=== PATIENT | male | born 1940 | race Caucasian/White ===

== ENCOUNTER 2018-07-18 12:03 | Observation (INO) | payer OTHER ==
[2018-07-18] MEDS ORDERED: Sodium Chloride 0.9% 1,000 ML IV ONE (13:11)
--- NOTE | 2018-07-18 14:00 | C.PDOC ---
History Of Present Illness 78-year-old male with a PMHx of prostate problem, presents to the ED for evaluation after noticing blood in his urine since last night. Patient notes the area continues to bleed today, prompting him to come to the ED. He denies any p ain. Patient then called his urologist today, who referred him to the ED. Otherwise he denies any fever, chills, dysuria, or urinary retention. Time Seen by Provider: 07/18/18 13:07 Chief Complaint (Nursing): Male Genitourinary History Per: Patient History/Exam Limitations: no limitations Onset/Duration Of Symptoms: Days Current Symptoms Are (Timing): Still Present Past Medical History Reviewed: Historical Data, Nursing Documentation, Vital Signs Vital Signs: Last Vital Signs Temp 97.7 F 07/18/18 12:07 Pulse 103 H 07/18/18 12:07 Resp 18 07/18/18 12:07 BP 95/64 L 07/18/18 12:07 Pulse Ox 97 07/18/18 12:07 - Medical History PMH: Hypothyroidism Family History: States: No Known Family Hx - Social History Hx Alcohol Use: No Hx Substance Use: No - Immunization History Hx Tetanus Toxoid Vaccination: Yes Hx Influenza Vaccination: Yes Hx Pneumococcal Vaccination: Yes Review Of Systems Constitutional: Negative for: Fever, Chills Cardiovascular: Negative for: Chest Pain Respiratory: Negative for: Shortness of Breath Gastrointestinal: Negative for: Vomiting, Abdominal Pain, Diarrhea Genitourinary: Positive for: Hematuria. Negative for: Dysuria, Scrotal Pain, Penile Pain Neurological: Negative for: Weakness, Dizziness Physical Exam - Physical Exam Appears: Well, Non-toxic, No Acute Distress Skin: Warm, Dry, No Rash Head: Atraumatic, Normacephalic Eye(s): bilateral: Normal Inspection Oral Mucosa: Moist Neck: Normal ROM Chest: Symmetrical Cardiovascular: Rhythm Regular, No Murmur Respiratory: Normal Breath Sounds, No Rales, No Rhonchi, No Wheezing Gastrointestinal/Abdominal: Soft, No Tenderness, No Guarding Male Genital: No Testicular Swelling (or swelling), Circumcised, Other (+ Blood on the tip of penis) Extremity: Bilateral: Atraumatic, Normal Color And Temperature, Normal ROM Neurological/Psych: Oriented x3, Normal Speech ED Course And Treatment - Laboratory Results Result Diagrams: 07/18/18 14:14 07/18/18 14:14 O2 Sat by Pulse Oximetry: 97 (RA) Pulse Ox Interpretation: Normal Medical Decision Making Medical Decision Makin:[address] Reginaldo Diego, requests inserting sotelo and CBI. Will come to evaluate patient in the ED. Plan: * CBC, CMP * UA and culture * Sotelo inserted * Patient kept NPO * 1L IV fluids infusing Progress: Patient continued to have bleeding despite CBI. Contact DR Diego who states he will schedule patient for OR cystoscopy in AM Contact PMD DR Nuñez for admission. Disposition Counseled Patient/Family Regarding: Diagnosis, Need For Followup - Disposition Disposition: HOSPITALIZED Disposition Time: 16:00 Condition: STABLE - POA Present On Arrival: None - Clinical Impression Clinical Impression: Hematuria - PA / [employer] / Resident Statement MD/DO has reviewed & agrees with the documentation as recorded. - Scribe Statement The provider has reviewed the documentation as recorded by the Scribe Kirstie Rock All medical record entries made by the Scribe were at my direction and personally dictated by me. I have reviewed the chart and agree that the record accurately reflects my personal performance of the history, physical exam, medical decision making, and the department course for this patient. I have also personally directed, reviewed, and agree with the discharge instructions and dis position. Decision To Admit - Pt Status Changed To: Hospital Disposition Of: Observation - . Bed Request Type: Regular Admitting Physician: Radha Nuñez Patient Diagnosis: Hematuria
[2018-07-18 14:26] LABS: BASO % 0.5 % (0.0-2.0); EOS % 0.2 % (0.0-4.0); HEMOGLOBIN 12.2 g/dL (12.0-18.0); LYMPH # 1.4 K/uL (1.0-4.3); LYMPH % 13.1 % (20.0-40.0); MEAN CELL VOLUME 92.4 fL (80.0-94.0); MEAN CORPUSCULAR HGB CONC 34.6 g/dL (33.0-37.0); MEAN PLATELET VOLUME 8.9 fL (7.2-11.7); MONO # 0.6 K/uL (0.0-0.8); MONO % 5.5 % (0.0-10.0); NEUT # 8.5 K/uL (1.8-7.0); NEUT % 80.7 % (50.0-75.0); RBC 3.8 Mil/uL (4.40-5.90); RED CELL DISTRIBUTION WIDTH 14.3 % (11.5-14.5); WHITE BLOOD COUNT 10.5 K/uL (4.8-10.8)
[2018-07-18 14:52] LABS: ALB/GLOB RATIO 1.9 (1.0-2.1); ALBUMIN 4.6 g/dL (3.5-5.0); ALT/SGPT 41 U/L (21-72); AST/SGOT 27 U/L (17-59); BLOOD UREA NITROGEN 20 mg/dL (9-20); CALCIUM 9.5 mg/dl (8.6-10.4); GFR NON-AFRICAN AMERICAN 53
[2018-07-18 15:31] LABS: URINE BILIRUBIN NEGATIVE (NEGATIVE); URINE BLOOD 3+ (NEGATIVE); URINE CLARITY Hazy (Clear); URINE COLOR Yellow (YELLOW); URINE GLUCOSE (UA) NORMAL (Normal); URINE LEUKOCYTE ESTERASE NEG Leu/uL (Negative); URINE PROTEIN 3+ mg/dL (NEGATIVE); URINE UROBILINOGEN NORMAL mg/dL (0.2-1.0)
[2018-07-18] MEDS ORDERED: Dextrose 5%/0.45% NS 1,000 ML IV ONE (15:51)
[2018-07-18] MEDS ORDERED: Sodium Chloride 0.9% 1,000 ML IV SCH (19:00)
[2018-07-18 19:03] LABS: BASO % 0.4 % (0.0-2.0); EOS % 0.2 % (0.0-4.0); HEMOGLOBIN 11.9 g/dL (12.0-18.0); LYMPH % 10.1 % (20.0-40.0); MEAN CELL VOLUME 91.4 fL (80.0-94.0); MEAN CORPUSCULAR HEMOGLOBIN 31.2 pg (27.0-31.0); MEAN CORPUSCULAR HGB CONC 34.1 g/dL (33.0-37.0); MEAN PLATELET VOLUME 8.6 fL (7.2-11.7); MONO # 0.4 K/uL (0.0-0.8); MONO % 4.2 % (0.0-10.0); NEUT # 8.2 K/uL (1.8-7.0); NEUT % 85.1 % (50.0-75.0); RBC 3.82 Mil/uL (4.40-5.90); RED CELL DISTRIBUTION WIDTH 13.9 % (11.5-14.5); WHITE BLOOD COUNT 9.6 K/uL (4.8-10.8)
--- NOTE | 2018-07-18 19:22 | CP.PCM.HP ---
History of Present Illness - History of Present Illness History of Present Illness: patient with multiple medical problems Prostate ca s/p RT /seed treatment 2004 NIDDM2 Choesterolnemia Primary Hypothyroidism Hearing Loss Hyperuricemia Proteinuria patient was doing good, until last night when he noticed blood per urine. he denies fever , dysuria, abdominal pain, vomiting diarrhea, syncope. Bleding persisted and went to his Urologist -found to have low BP and persistent gross hematuria- hence to ER_ He was given IVF and h/h was at 12-11. Patient was subsequently admitted for further management PMH as above NKDA non smoker non etoh Immunization Pneumonia vaccine x 2 Shingles 2015 Present on Admission - Present on Admission Any Indicators Present on Admission: No History of DVT/PE: No History of Uncontrolled Diabetes: No Urinary Catheter: No Decubitus Ulcer Present: No Review of Systems - Constitutional Constitutional: absent: Fatigue, Fever, Lethargy, Weakness - EENT Eyes: absent: Other Visual Disturbances Ears: Abnormal Hearing (on hearing aid ) Nose/Mouth/Throat: absent: Sore Throat, Neck Pain - Cardiovascular Cardiovascular: absent: Chest Pain, Dyspnea, Leg Edema, Paroxysmal Nocturnal Dyspnea, Syncope - Respiratory Respiratory: absent: Cough, Hemoptysis, Chest Congestion - Gastrointestinal Gastrointestinal: absent: Abdominal Pain, Cramping, Diarrhea, Vomiting - Genitourinary Genitourinary: Hematuria (gross hematuria since last night , history of Prostate ca ) - Musculoskeletal Musculoskeletal: absent: Abnormal Gait, Deformity, Limited Range of Motion, Muscle Cramps - Integumentary Integumentary: absent: Change in Pigmentation, Lesions, Skin Ulcer, Sores - Neurological Neurological: absent: Abnormal Gait, Abnormal Hearing, Abnormal Movements, Behavioral Changes, Convulsions - Psychiatric Psychiatric: absent: Behavioral Changes, Confusion, Depression - Hematologic/Lymphatic Hematologic: absent: Easy Bleeding (except for this hematuria episode), Easy Bruising Past Patient History - Past Medical History & Family History Past Medical History?: Yes - Past Social History Smoking Status: Never Smoked - CARDIAC Hx Hypercholesterolemia: Yes - ENDOCRINE/METABOLIC Hx Diabetes Mellitus Type 2: Yes Hx Hypothyroidism: Yes - MUSCULOSKELETAL/RHEUMATOLOGICAL Hx Falls: No - GENITOURINARY/GYNECOLOGICAL Hx Prostate Cancer: Yes (radiation and seed implant 2004) - PSYCHIATRIC Hx Substance Use: No - SURGICAL HISTORY Hx Surgeries: No Other/Comment: TURP - ANESTHESIA Hx Anesthesia: Yes Hx Anesthesia Reactions: No Meds Allergies/Adverse Reactions: Allergies Allergy/AdvReac Type Severity Reaction Status Date / Time No Known Allergies Allergy Verified 07/18/18 12:13 Physical Exam - Constitutional Appears: Non-toxic, No Acute Distress - Eye Exam Eye Exam: Normal appearance. absent: Nystagmus - ENT Exam ENT Exam: Mucous Membranes Moist - Neck Exam Neck exam: Positive for: Full Rom. Negative for: Tenderness - Respiratory Exam Respiratory Exam: Clear to Auscultation Bilateral, NORMAL BREATHING PATTERN - Cardiovascular Exam Cardiovascular Exam: REGULAR RHYTHM - GI/Abdominal Exam GI & Abdominal Exam: Normal Bowel Sounds, Soft, Tenderness - Exam Exam: absent: Bladder Distension (with bloody urine/catheter ) - Extremities Exam Extremities exam: Positive for: normal inspection, pedal pulses present. Negative for: full ROM, joint swelling, pedal edema, tenderness - Back Exam Back exam: FULL ROM. absent: rash noted - Neurological Exam Neurological exam: Alert, Normal Gait, Oriented x3 - Psychiatric Exam Psychiatric exam: Normal Affect, Normal Mood - Skin Skin Exam: Intact, Normal Color Results - Vital Signs Recent Vital Signs: Last Vital Signs Temp 97.7 F 07/18/18 12:07 Pulse 79 07/18/18 18:59 Resp 16 07/18/18 18:59 BP 146/110 H 07/18/18 18:59 Pulse Ox 98 07/18/18 18:59 - Labs Result Diagrams: 07/18/18 18:58 07/18/18 14:14 Labs: Laboratory Results - last 24 hr 07/18/18 07/18/18 07/18/18 14:14 14:14 15:07 WBC 10.5 RBC 3.80 L Hgb 12.2 Hct 35.1 MCV 92.4 MCH 32.0 H MCHC 34.6 RDW 14.3 Plt Count 191 MPV 8.9 Neut % (Auto) 80.7 H Lymph % (Auto) 13.1 L [place] % (Auto) 5.5 Eos % (Auto) 0.2 Baso % (Auto) 0.5 Neut # (Auto) 8.5 H Lymph # (Auto) 1.4 [place] # (Auto) 0.6 Eos # (Auto) 0.0 Baso # (Auto) 0.0 Sodium 136 Potassium 4.7 Chloride 100 Carbon Dioxide 23 Anion Gap 17 BUN 20 Creatinine 1.3 Est GFR ( Amer) > 60 Est GFR (Non-Af Amer) 53 POC Glucose (mg/dL) Random Glucose 116 H Calcium 9.5 Total Bilirubin 0.5 AST 27 ALT 41 Alkaline Phosphatase 41 Total Protein 7.0 Albumin 4.6 Globulin 2.4 Albumin/Globulin Ratio 1.9 Urine Color Yellow Urine Clarity Hazy Urine pH 6.0 Ur Specific [place] 1.017 Urine Protein 3+ H Urine Glucose (UA) Normal Urine Ketones Negative Urine Blood 3+ H Urine Nitrate Negative Urine Bilirubin Negative Urine Urobilinogen Normal Ur Leukocyte Esterase Neg Urine RBC (Auto) 26531 H 07/18/18 07/18/18 07/18/18 15:24 18:01 18:58 WBC 9.6 RBC 3.82 L Hgb 11.9 L Hct 34.9 L MCV 91.4 MCH 31.2 H MCHC 34.1 RDW 13.9 Plt Count 181 MPV 8.6 Neut % (Auto) 85.1 H Lymph % (Auto) 10.1 L [place] % (Auto) 4.2 Eos % (Auto) 0.2 Baso % (Auto) 0.4 Neut # (Auto) 8.2 H Lymph # (Auto) 1.0 [place] # (Auto) 0.4 Eos # (Auto) 0.0 Baso # (Auto) 0.0 Sodium Potassium Chloride Carbon Dioxide Anion Gap BUN Creatinine Est GFR ( Amer) Est GFR (Non-Af Amer) POC Glucose (mg/dL) 84 165 H Random Glucose Calcium Total Bilirubin AST ALT Alkaline Phosphatase Total Protein Albumin Globulin Albumin/Globulin Ratio Urine Color Urine Clarity Urine pH Ur Specific [place] Urine Protein Urine Glucose (UA) Urine Ketones Urine Blood Urine Nitrate Urine Bilirubin Urine Urobilinogen Ur Leukocyte Esterase Urine RBC (Auto) Assessment & Plan - Assessment and Plan (Free Text) Assessment: Patient with multiple medical problems History of Prostate ca and Treatment 2004-admitted duet o acute episode of gross hematuria with low BP - post IVF, seen by Urologist for Cysto in am, type and cross and transfuse accordingly, monitor CBC Hypotension from blood loss- IVF- currently stable hold bp meds for now , keep IVF at low rate- BP increasing noted , NIDDM2- hold medications since patient will be NPO for morning procedure accucheck for now , no Insulin coverage for tonight GI prophylaxis no drug DVT prophylaxis- currently bleeding /bladder - Date & Time Date: 07/18/18 Time: 06:40
[2018-07-18 22:25] LABS: HEMOGLOBIN 12.4 g/dL (12.0-18.0); MEAN CELL VOLUME 95.1 fL (80.0-94.0); MEAN CORPUSCULAR HEMOGLOBIN 31.4 pg (27.0-31.0); MEAN PLATELET VOLUME 9.6 fL (7.2-11.7); RBC 3.95 Mil/uL (4.40-5.90); RED CELL DISTRIBUTION WIDTH 14.2 % (11.5-14.5); WHITE BLOOD COUNT 16.2 K/uL (4.8-10.8)
[2018-07-19 07:30] LABS: INR 1.1; PROTHROMBIN TIME 12.2 SECONDS (9.7-12.2)
--- NOTE | 2018-07-19 07:43 | CP.PCM.PN ---
Subjective - Date & Time of Evaluation Date of Evaluation: 07/19/18 Time of Evaluation: 08:20 - Subjective Subjective: chart review BP last nigh running high , diastolic more than 100a afebrile early CBC not yet available for cysto this morning patient seen- in OR waiting room- no complaints, no chest pains, no SOB latest H/H- stable 11-12 EKG showed aFib-new onset cysto cancelled for further cardiac evaluation and management patient aware of plan , and son by bedside Objective - Vital Signs/Intake and Output Vital Signs (last 24 hours): Temp Pulse Resp BP Pulse Ox 98 F 99 H 20 111/69 97 07/18/18 23:35 07/18/18 23:35 07/18/18 23:35 07/18/18 23:35 07/19/18 00:00 Intake and Output: 07/19/18 07/19/18 06:59 18:59 Intake Total 04849 Output Total 91155 Balance -1810 - Medications Medications: Current Medications Acetaminophen (Tylenol 325mg Tab) 650 mg PO Q4 PRN PRN Reason: Pain, Mild (1-3) Last Admin: 07/18/18 22:04 Dose: 650 mg Sodium Chloride (Sodium Chloride 0.9%) 1,000 mls @ 80 mls/hr IV .[id number] KERRI Last Admin: 07/19/18 06:29 Dose: 80 mls/hr Pantoprazole Sodium (Protonix Inj) 40 mg IVP DAILY KERRI - Labs Labs: 07/18/18 22:20 07/18/18 14:14 PT 12.2 SECONDS (9.7-12.2) 07/19/18 07:08 INR 1.1 07/19/18 07:08 APTT 29 SECONDS (21-34) 07/19/18 07:08 - Constitutional Appears: Non-toxic, No Acute Distress (conversant , AAAOx3 ) - Head Exam Head Exam: ATRAUMATIC, NORMOCEPHALIC (, slight lip pallor ) - Eye Exam Eye Exam: Normal appearance - ENT Exam ENT Exam: Mucous Membranes Moist - Neck Exam Neck Exam: Full ROM. absent: Tenderness - Respiratory Exam Respiratory Exam: Clear to Ausculation Bilateral, NORMAL BREATHING PATTERN - Cardiovascular Exam Cardiovascular Exam: Irregular Rhythm - GI/Abdominal Exam GI & Abdominal Exam: Soft, Normal Bowel Sounds. absent: Tenderness - Back Exam Back Exam: absent: rash noted - Neurological Exam Neurological Exam: Alert, Awake, Normal Gait, Oriented x3 - Psychiatric Exam Psychiatric exam: Normal Affect, Normal Mood - Skin Skin Exam: Intact, Normal Color Assessment and Plan - Assessment and Plan (Free Text) Assessment: Patient with multiple medical problems admitted for Gross Hematuria- with History of Prostate Ca, for cystoscopy but found to have new onset Afib, procedure aborted ongoing cardiac mangement and further evaluation patient remained asymptomatic despite EKG findings NIDDM2- monitoring - good PO intake, to resume medication- Hypertension-on meds on monitoring Echo Hypothyroidism-on meds GI prophylaxis for further monitoring
[2018-07-19 07:53] LABS: BASO # 0.1 K/uL (0.0-0.2); BASO % 0.7 % (0.0-2.0); EOS % 0.4 % (0.0-4.0); HEMOGLOBIN 11.6 g/dL (12.0-18.0); LYMPH # 1.3 K/uL (1.0-4.3); LYMPH % 11.4 % (20.0-40.0); MEAN CORPUSCULAR HEMOGLOBIN 31.3 pg (27.0-31.0); MEAN CORPUSCULAR HGB CONC 34.2 g/dL (33.0-37.0); MEAN PLATELET VOLUME 8.8 fL (7.2-11.7); MONO # 0.9 K/uL (0.0-0.8); NEUT % 79.5 % (50.0-75.0); NRBC % 0.1 % (0.0-2.0); RBC 3.71 Mil/uL (4.40-5.90); RED CELL DISTRIBUTION WIDTH 14.2 % (11.5-14.5); WHITE BLOOD COUNT 11.3 K/uL (4.8-10.8)
[2018-07-19 08:06] LABS: MEAN CELL VOLUME 91.6 fL (80.0-94.0)
--- NOTE | 2018-07-19 09:12 | PCM.URO ---
Urology Progress Note - Objective Lab Studies: Reviewed (gu plans: as soon as we have cardiac clearance we will plan for cystoscopy full note to be dictated) Lab Results Last 24 Hours: Laboratory Results - last 24 hr 07/18/18 07/18/18 07/18/18 14:14 14:14 15:07 WBC 10.5 RBC 3.80 L Hgb 12.2 Hct 35.1 MCV 92.4 MCH 32.0 H MCHC 34.6 RDW 14.3 Plt Count 191 MPV 8.9 Neut % (Auto) 80.7 H Lymph % (Auto) 13.1 L [place] % (Auto) 5.5 Eos % (Auto) 0.2 Baso % (Auto) 0.5 Neut # (Auto) 8.5 H Lymph # (Auto) 1.4 [place] # (Auto) 0.6 Eos # (Auto) 0.0 Baso # (Auto) 0.0 PT INR APTT Sodium 136 Potassium 4.7 Chloride 100 Carbon Dioxide 23 Anion Gap 17 BUN 20 Creatinine 1.3 Est GFR ( Amer) > 60 Est GFR (Non-Af Amer) 53 POC Glucose (mg/dL) Random Glucose 116 H Calcium 9.5 Total Bilirubin 0.5 AST 27 ALT 41 Alkaline Phosphatase 41 Total Protein 7.0 Albumin 4.6 Globulin 2.4 Albumin/Globulin Ratio 1.9 Urine Color Yellow Urine Clarity Hazy Urine pH 6.0 Ur Specific [place] 1.017 Urine Protein 3+ H Urine Glucose (UA) Normal Urine Ketones Negative Urine Blood 3+ H Urine Nitrate Negative Urine Bilirubin Negative Urine Urobilinogen Normal Ur Leukocyte Esterase Neg Urine RBC (Auto) 32873 H Blood Type Antibody Screen 07/18/18 07/18/18 07/18/18 15:24 18:01 18:53 WBC RBC Hgb Hct MCV MCH MCHC RDW Plt Count MPV Neut % (Auto) Lymph % (Auto) [place] % (Auto) Eos % (Auto) Baso % (Auto) Neut # (Auto) Lymph # (Auto) [place] # (Auto) Eos # (Auto) Baso # (Auto) PT INR APTT Sodium Potassium Chloride Carbon Dioxide Anion Gap BUN Creatinine Est GFR ( Amer) Est GFR (Non-Af Amer) POC Glucose (mg/dL) 84 165 H Random Glucose Calcium Total Bilirubin AST ALT Alkaline Phosphatase Total Protein Albumin Globulin Albumin/Globulin Ratio Urine Color Urine Clarity Urine pH Ur Specific [place] Urine Protein Urine Glucose (UA) Urine Ketones Urine Blood Urine Nitrate Urine Bilirubin Urine Urobilinogen Ur Leukocyte Esterase Urine RBC (Auto) Blood Type B POSITIVE Antibody Screen Negative 07/18/18 07/18/18 07/18/18 18:58 21:23 22:20 WBC 9.6 16.2 H D RBC 3.82 L 3.95 L Hgb 11.9 L 12.4 Hct 34.9 L 37.6 MCV 91.4 95.1 H D MCH 31.2 H 31.4 H MCHC 34.1 33.0 RDW 13.9 14.2 Plt Count 181 140 MPV 8.6 9.6 Neut % (Auto) 85.1 H Lymph % (Auto) 10.1 L [place] % (Auto) 4.2 Eos % (Auto) 0.2 Baso % (Auto) 0.4 Neut # (Auto) 8.2 H Lymph # (Auto) 1.0 [place] # (Auto) 0.4 Eos # (Auto) 0.0 Baso # (Auto) 0.0 PT INR APTT Sodium Potassium Chloride Carbon Dioxide Anion Gap BUN Creatinine Est GFR ( Amer) Est GFR (Non-Af Amer) POC Glucose (mg/dL) 204 H Random Glucose Calcium Total Bilirubin AST ALT Alkaline Phosphatase Total Protein Albumin Globulin Albumin/Globulin Ratio Urine Color Urine Clarity Urine pH Ur Specific [place] Urine Protein Urine Glucose (UA) Urine Ketones Urine Blood Urine Nitrate Urine Bilirubin Urine Urobilinogen Ur Leukocyte Esterase Urine RBC (Auto) Blood Type Antibody Screen 07/19/18 07/19/18 07/19/18 02:14 07:06 07:08 WBC RBC Hgb Hct MCV MCH MCHC RDW Plt Count MPV Neut % (Auto) Lymph % (Auto) [place] % (Auto) Eos % (Auto) Baso % (Auto) Neut # (Auto) Lymph # (Auto) [place] # (Auto) Eos # (Auto) Baso # (Auto) PT 12.2 INR 1.1 APTT 29 Sodium Potassium Chloride Carbon Dioxide Anion Gap BUN Creatinine Est GFR ( Amer) Est GFR (Non-Af Amer) POC Glucose (mg/dL) 156 H 131 H Random Glucose Calcium Total Bilirubin AST ALT Alkaline Phosphatase Total Protein Albumin Globulin Albumin/Globulin Ratio Urine Color Urine Clarity Urine pH Ur Specific [place] Urine Protein Urine Glucose (UA) Urine Ketones Urine Blood Urine Nitrate Urine Bilirubin Urine Urobilinogen Ur Leukocyte Esterase Urine RBC (Auto) Blood Type Antibody Screen 07/19/18 07:32 WBC 11.3 H RBC 3.71 L Hgb 11.6 L Hct 33.9 L MCV 91.6 D MCH 31.3 H MCHC 34.2 RDW 14.2 Plt Count 170 MPV 8.8 Neut % (Auto) 79.5 H Lymph % (Auto) 11.4 L [place] % (Auto) 8.0 Eos % (Auto) 0.4 Baso % (Auto) 0.7 Neut # (Auto) 9.0 H Lymph # (Auto) 1.3 [place] # (Auto) 0.9 H Eos # (Auto) 0.0 Baso # (Auto) 0.1 PT INR APTT Sodium Potassium Chloride Carbon Dioxide Anion Gap BUN Creatinine Est GFR ( Amer) Est GFR (Non-Af Amer) POC Glucose (mg/dL) Random Glucose Calcium Total Bilirubin AST ALT Alkaline Phosphatase Total Protein Albumin Globulin Albumin/Globulin Ratio Urine Color Urine Clarity Urine pH Ur Specific [place] Urine Protein Urine Glucose (UA) Urine Ketones Urine Blood Urine Nitrate Urine Bilirubin Urine Urobilinogen Ur Leukocyte Esterase Urine RBC (Auto) Blood Type Antibody Screen Intake & Output: Intake & Output 07/18/18 07/19/18 07/19/18 18:59 06:59 18:59 Intake Total 2500 96459 Output Total 2500 79223 Balance 0 -1810 Weight 175 lb Intake: IV 2500 Intake, IV Amount 640 Left Antecubital 640 Oral 0 Other 16640 Output: Urine 2500 73147 3-way Urethral 1250 Other: Voiding Method 3-way [place] with CBI # Bowel Movements 0 Vital Signs: Vital Signs - 24 hr 07/18/18 07/18/18 07/18/18 12:07 17:34 17:46 Temperature 97.7 F Pulse Rate 103 H 89 Respiratory 18 18 Rate Blood Pressure 95/64 L 145/71 O2 Sat by Pulse 97 97 100 Oximetry 07/18/18 07/18/18 07/18/18 18:59 20:30 22:04 Temperature 98.0 F 98.2 F Pulse Rate 79 112 H Respiratory 16 20 Rate Blood Pressure 146/110 H 160/90 H O2 Sat by Pulse 98 95 Oximetry 07/18/18 07/19/18 07/19/18 23:35 00:00 07:59 Temperature 98 F 98.7 F Pulse Rate 99 H 88 Respiratory 20 20 Rate Blood Pressure 111/69 128/74 O2 Sat by Pulse 97 97 96 Oximetry
[2018-07-19 11:48] LABS: CK-MB 2.22 ng/mL (0.0-3.38); TROPONIN I 0.015 ng/mL (0.00-0.120)
[2018-07-19] MEDS: Levothyroxine 125 MCG TAB PO SCH (12:58)
[2018-07-19] MEDS ORDERED: Heparin25000 units/250ml 1/2NS 25,000 UNITS/250 ML BAG IV PRN (13:08)
--- NOTE | 2018-07-19 14:19 | CP.PCM.CON ---
<Denisse Murrell - Last Filed: 07/19/18 15:23> History of Present Illness - History of Present Illness History of Present Illness: Cardiology Consult Note for Dr. Panda: 78 year old male with past medical history of prostate CA, Diabetes Type II; HLD; Hypothyroidism presented to the ER for hematuria. Cardiology has been asked to be consulted for new onset atrial fibrillation. Patient denies chest pain, palpitations, shortness of breath, nausea, vomiting, dizziness, lightheadedness, diarrhea or constipation. PMD: Dr. Cates Past Medical History: Prostate CA; Diabetes Type II; HLD; Hypothyroidism, hearing loss Past Surgical History: Skin biopsy - which was benign Medications: EMR Allergies: NKDA Social History: denies smoking, alcohol or illicit drug use. Lives with home [facility]. Review of Systems - Constitutional Constitutional: absent: Chills - EENT Eyes: absent: Blurred Vision Ears: Decreased Hearing - Cardiovascular Cardiovascular: absent: Chest Pain, Chest Pain with Activity, Dyspnea, Edema, Lightheadedness, Palpitations - Respiratory Respiratory: absent: Dyspnea - Gastrointestinal Gastrointestinal: absent: Constipation, Diarrhea, Nausea, Vomiting - Genitourinary Genitourinary: Hematuria - Neurological Neurological: absent: Headaches Past Patient History - Past Medical History & Family History Past Medical History?: Yes - Past Social History Smoking Status: Never Smoked - CARDIAC Hx Hypercholesterolemia: Yes - ENDOCRINE/METABOLIC Hx Diabetes Mellitus Type 2: Yes Hx Hypothyroidism: Yes - MUSCULOSKELETAL/RHEUMATOLOGICAL Hx Falls: No - GENITOURINARY/GYNECOLOGICAL Hx Prostate Cancer: Yes (radiation and seed implant 2004) - PSYCHIATRIC Hx Substance Use: No - SURGICAL HISTORY Hx Surgeries: No Other/Comment: TURP - ANESTHESIA Hx Anesthesia: Yes Hx Anesthesia Reactions: No Meds Allergies/Adverse Reactions: Allergies Allergy/AdvReac Type Severity Reaction Status Date / Time No Known Allergies Allergy Verified 07/18/18 12:13 - Medications Medications: Current Medications Acetaminophen (Tylenol 325mg Tab) 650 mg PO Q4 PRN PRN Reason: Pain, Mild (1-3) Last Admin: 07/18/18 22:04 Dose: 650 mg Allopurinol (Zyloprim) 100 mg PO DAILY [facility] Last Admin: 07/19/18 12:57 Dose: 100 mg Sodium Chloride (Sodium Chloride 0.9%) 1,000 mls @ 80 mls/hr IV .[id number] [facility] Last Admin: 07/19/18 06:29 Dose: 80 mls/hr Heparin Sodium/Sodium Chloride (Heparin 72993 Units/250ml 1/2 Normal Saline) 25,000 units in 250 mls @ 9.525 mls/hr IV .Q24H PRN; Protocol PRN Reason: PROTOCOL Levothyroxine Sodium (Synthroid) 125 mcg PO DAILY@0630 [facility] Last Admin: 07/19/18 12:58 Dose: 125 mcg Losartan Potassium (Cozaar) 25 mg PO DAILY [facility] Metformin HCl (Glucophage) 1,000 mg PO BIDCC [facility] Last Admin: 07/19/18 12:57 Dose: 1,000 mg Pantoprazole Sodium (Protonix Inj) 40 mg IVP DAILY [facility] Last Admin: 07/19/18 10:22 Dose: Not Given Physical Exam - Constitutional Appears: Well, Non-toxic, No Acute Distress - Head Exam Head Exam: ATRAUMATIC, NORMAL INSPECTION - Eye Exam Eye Exam: EOMI, Normal appearance, PERRL Pupil Exam: NORMAL ACCOMODATION - ENT Exam ENT Exam: Mucous Membranes Moist - Respiratory Exam Respiratory Exam: Clear to Auscultation Bilateral, NORMAL BREATHING PATTERN - Cardiovascular Exam Cardiovascular Exam: Irregular Rhythm - GI/Abdominal Exam GI & Abdominal Exam: Normal Bowel Sounds, Soft. absent: Tenderness - Extremities Exam Extremities exam: Positive for: normal inspection - Neurological Exam Neurological exam: Alert, Oriented x3 - Psychiatric Exam Psychiatric exam: Normal Affect - Skin Skin Exam: Normal Color Results - Vital Signs Recent Vital Signs: Last Vital Signs Temp 98.7 F 07/19/18 07:59 Pulse 88 07/19/18 07:59 Resp 20 07/19/18 07:59 BP 128/74 07/19/18 07:59 Pulse Ox 96 07/19/18 07:59 - Labs Result Diagrams: 07/19/18 07:32 07/18/18 14:14 Labs: Laboratory Results - last 24 hr 07/18/18 07/18/18 07/18/18 14:14 14:14 15:07 WBC 10.5 RBC 3.80 L Hgb 12.2 Hct 35.1 MCV 92.4 MCH 32.0 H MCHC 34.6 RDW 14.3 Plt Count 191 MPV 8.9 Neut % (Auto) 80.7 H Lymph % (Auto) 13.1 L [place] % (Auto) 5.5 Eos % (Auto) 0.2 Baso % (Auto) 0.5 Neut # (Auto) 8.5 H Lymph # (Auto) 1.4 [place] # (Auto) 0.6 Eos # (Auto) 0.0 Baso # (Auto) 0.0 PT INR APTT Sodium 136 Potassium 4.7 Chloride 100 Carbon Dioxide 23 Anion Gap 17 BUN 20 Creatinine 1.3 Est GFR ( Amer) > 60 Est GFR (Non-Af Amer) 53 POC Glucose (mg/dL) Random Glucose 116 H Calcium 9.5 Total Bilirubin 0.5 AST 27 ALT 41 Alkaline Phosphatase 41 Total Creatine Kinase CK-MB (Mass) Troponin I Total Protein 7.0 Albumin 4.6 Globulin 2.4 Albumin/Globulin Ratio 1.9 Urine Color Yellow Urine Clarity Hazy Urine pH 6.0 Ur Specific [place] 1.017 Urine Protein 3+ H Urine Glucose (UA) Normal Urine Ketones Negative Urine Blood 3+ H Urine Nitrate Negative Urine Bilirubin Negative Urine Urobilinogen Normal Ur Leukocyte Esterase Neg Urine RBC (Auto) 96507 H Blood Type Antibody Screen 07/18/18 07/18/18 07/18/18 15:24 18:01 18:53 WBC RBC Hgb Hct MCV MCH MCHC RDW Plt Count MPV Neut % (Auto) Lymph % (Auto) [place] % (Auto) Eos % (Auto) Baso % (Auto) Neut # (Auto) Lymph # (Auto) [place] # (Auto) Eos # (Auto) Baso # (Auto) PT INR APTT Sodium Potassium Chloride Carbon Dioxide Anion Gap BUN Creatinine Est GFR ( Amer) Est GFR (Non-Af Amer) POC Glucose (mg/dL) 84 165 H Random Glucose Calcium Total Bilirubin AST ALT Alkaline Phosphatase Total Creatine Kinase CK-MB (Mass) Troponin I Total Protein Albumin Globulin Albumin/Globulin Ratio Urine Color Urine Clarity Urine pH Ur Specific [place] Urine Protein Urine Glucose (UA) Urine Ketones Urine Blood Urine Nitrate Urine Bilirubin Urine Urobilinogen Ur Leukocyte Esterase Urine RBC (Auto) Blood Type B POSITIVE Antibody Screen Negative 07/18/18 07/18/18 07/18/18 18:58 21:23 22:20 WBC 9.6 16.2 H D RBC 3.82 L 3.95 L Hgb 11.9 L 12.4 Hct 34.9 L 37.6 MCV 91.4 95.1 H D MCH 31.2 H 31.4 H MCHC 34.1 33.0 RDW 13.9 14.2 Plt Count 181 140 MPV 8.6 9.6 Neut % (Auto) 85.1 H Lymph % (Auto) 10.1 L [place] % (Auto) 4.2 Eos % (Auto) 0.2 Baso % (Auto) 0.4 Neut # (Auto) 8.2 H Lymph # (Auto) 1.0 [place] # (Auto) 0.4 Eos # (Auto) 0.0 Baso # (Auto) 0.0 PT INR APTT Sodium Potassium Chloride Carbon Dioxide Anion Gap BUN Creatinine Est GFR ( Amer) Est GFR (Non-Af Amer) POC Glucose (mg/dL) 204 H Random Glucose Calcium Total Bilirubin AST ALT Alkaline Phosphatase Total Creatine Kinase CK-MB (Mass) Troponin I Total Protein Albumin Globulin Albumin/Globulin Ratio Urine Color Urine Clarity Urine pH Ur Specific [place] Urine Protein Urine Glucose (UA) Urine Ketones Urine Blood Urine Nitrate Urine Bilirubin Urine Urobilinogen Ur Leukocyte Esterase Urine RBC (Auto) Blood Type Antibody Screen 07/19/18 07/19/18 07/19/18 02:14 07:06 07:08 WBC RBC Hgb Hct MCV MCH MCHC RDW Plt Count MPV Neut % (Auto) Lymph % (Auto) [place] % (Auto) Eos % (Auto) Baso % (Auto) Neut # (Auto) Lymph # (Auto) [place] # (Auto) Eos # (Auto) Baso # (Auto) PT 12.2 INR 1.1 APTT 29 Sodium Potassium Chloride Carbon Dioxide Anion Gap BUN Creatinine Est GFR ( Amer) Est GFR (Non-Af Amer) POC Glucose (mg/dL) 156 H 131 H Random Glucose Calcium Total Bilirubin AST ALT Alkaline Phosphatase Total Creatine Kinase CK-MB (Mass) Troponin I Total Protein Albumin Globulin Albumin/Globulin Ratio Urine Color Urine Clarity Urine pH Ur Specific [place] Urine Protein Urine Glucose (UA) Urine Ketones Urine Blood Urine Nitrate Urine Bilirubin Urine Urobilinogen Ur Leukocyte Esterase Urine RBC (Auto) Blood Type Antibody Screen 07/19/18 07/19/18 07/19/18 07:32 10:57 10:58 WBC 11.3 H RBC 3.71 L Hgb 11.6 L Hct 33.9 L MCV 91.6 D MCH 31.3 H MCHC 34.2 RDW 14.2 Plt Count 170 MPV 8.8 Neut % (Auto) 79.5 H Lymph % (Auto) 11.4 L [place] % (Auto) 8.0 Eos % (Auto) 0.4 Baso % (Auto) 0.7 Neut # (Auto) 9.0 H Lymph # (Auto) 1.3 [place] # (Auto) 0.9 H Eos # (Auto) 0.0 Baso # (Auto) 0.1 PT INR APTT Sodium Potassium Chloride Carbon Dioxide Anion Gap BUN Creatinine Est GFR ( Amer) Est GFR (Non-Af Amer) POC Glucose (mg/dL) 164 H Random Glucose Calcium Total Bilirubin AST ALT Alkaline Phosphatase Total Creatine Kinase 152 CK-MB (Mass) 2.22 Troponin I 0.0150 Total Protein Albumin Globulin Albumin/Globulin Ratio Urine Color Urine Clarity Urine pH Ur Specific [place] Urine Protein Urine Glucose (UA) Urine Ketones Urine Blood Urine Nitrate Urine Bilirubin Urine Urobilinogen Ur Leukocyte Esterase Urine RBC (Auto) Blood Type Antibody Screen Assessment & Plan - Assessment and Plan (Free Text) Assessment: New Onset Atrial Fibrillation - Patient is asymptomatic - EKG: afib - Trop: Negative - f/u ECHO - f/u Carole stress test 07/20/18 - NPO after midnight - Patient started on heparin drip History of Diabetes Type II - Management per primary team - Metformin 1000mg bid - Losartan 25mg po daily HLD - Crestor 5mg HS Case discussed with Dr. Farazd Murrell PGY-2 <Fabian Panda - Last Filed: 07/19/18 22:09> Meds - Medications Medications: Current Medications Acetaminophen (Tylenol 325mg Tab) 650 mg PO Q4 PRN PRN Reason: Pain, Mild (1-3) Last Admin: 07/18/18 22:04 Dose: 650 mg Allopurinol (Zyloprim) 100 mg PO DAILY [facility] Last Admin: 07/19/18 12:57 Dose: 100 mg Ferrous Gluconate (Fergon) 324 mg PO TID [facility] Levothyroxine Sodium (Synthroid) 125 mcg PO DAILY@0630 [facility] Last Admin: 07/19/18 12:58 Dose: 125 mcg Losartan Potassium (Cozaar) 25 mg PO DAILY [facility] Last Admin: 07/19/18 17:51 Dose: 1,000 mg Pantoprazole Sodium (Protonix Inj) 40 mg IVP DAILY [facility] Last Admin: 07/19/18 10:22 Dose: Not Given Rosuvastatin Calcium (Crestor) 5 mg PO HS [facility] Results - Vital Signs Recent Vital Signs: Last Vital Signs Temp 97.6 F 07/19/18 17:41 Pulse 80 07/19/18 17:41 Resp 18 07/19/18 17:41 BP 112/70 07/19/18 17:41 Pulse Ox 97 07/19/18 11:15 - Labs Result Diagrams: 07/19/18 07:32 07/18/18 14:14 Labs: Laboratory Results - last 24 hr 07/18/18 07/19/18 07/19/18 22:20 02:14 07:06 WBC 16.2 H D RBC 3.95 L Hgb 12.4 Hct 37.6 MCV 95.1 H D MCH 31.4 H MCHC 33.0 RDW 14.2 Plt Count 140 MPV 9.6 Neut % (Auto) Lymph % (Auto) [place] % (Auto) Eos % (Auto) Baso % (Auto) Neut # (Auto) Lymph # (Auto) [place] # (Auto) Eos # (Auto) Baso # (Auto) PT INR APTT POC Glucose (mg/dL) 156 H 131 H Total Creatine Kinase CK-MB (Mass) Troponin I 07/19/18 07/19/18 07/19/18 07:08 07:32 10:57 WBC 11.3 H RBC 3.71 L Hgb 11.6 L Hct 33.9 L MCV 91.6 D MCH 31.3 H MCHC 34.2 RDW 14.2 Plt Count 170 MPV 8.8 Neut % (Auto) 79.5 H Lymph % (Auto) 11.4 L [place] % (Auto) 8.0 Eos % (Auto) 0.4 Baso % (Auto) 0.7 Neut # (Auto) 9.0 H Lymph # (Auto) 1.3 [place] # (Auto) 0.9 H Eos # (Auto) 0.0 Baso # (Auto) 0.1 PT 12.2 INR 1.1 APTT 29 POC Glucose (mg/dL) Total Creatine Kinase 152 CK-MB (Mass) 2.22 Troponin I 0.0150 07/19/18 07/19/18 07/19/18 10:58 16:38 17:39 WBC RBC Hgb Hct MCV MCH MCHC RDW Plt Count MPV Neut % (Auto) Lymph % (Auto) [place] % (Auto) Eos % (Auto) Baso % (Auto) Neut # (Auto) Lymph # (Auto) [place] # (Auto) Eos # (Auto) Baso # (Auto) PT INR APTT POC Glucose (mg/dL) 164 H 139 H Total Creatine Kinase 233 H CK-MB (Mass) 2.92 Troponin I 0.0130 Assessment & Plan - Assessment and Plan (Free Text) Assessment: Patient examined and evaluated personally by me. Plan of care d/w the durable medical equipment technician and as documented
[2018-07-19 17:09] LABS: CK-MB 2.92 ng/mL (0.0-3.38); TROPONIN I 0.013 ng/mL (0.00-0.120)
--- NOTE | 2018-07-19 17:19 | CARD ---
APPROVED REPORT Date of service: 07/19/2018 EXAM: Two-dimensional and M-mode echocardiogram with Doppler and color Doppler. Other Information Quality : GoodRhythm : RISK FACTORS Hyperlipidemia Diabetes 2D DIMENSIONS IVSd0.9 (0.7-1.1cm)Aortic Root (2D)3.1 (2.0-3.7cm) LVDd4.4 (3.9-5.9cm)PWd1.2 (0.7-1.1cm) LA Btmzog76 (18-58mL)LVDs3.1 (2.5-4.0cm) FS (%) 28.0 %LVEF (%)69.0 (>50%) LVEF (Lester's)69.31 %IVC0.00 cm M-Mode DIMENSIONS Left Atrium (MM)4.43 (2.5-4.0cm)IVSd1.01 (0.7-1.1cm) Aortic Root2.73 (2.2-3.7cm)LVDd5.11 (4.0-5.6cm) Aortic Cusp Exc.2.14 (1.5-2.0cm)PWd1.07 (0.7-1.1cm) FS (%) 42 %LVDs2.96 (2.0-3.8cm) TAPSE13.99 cmLVEF (%)73 (>50%) Mitral Valve MV E Dotrgxlq42.0cm/sMV A Kkcyfqry68.4cm/sE/A ratio2.1 TDI Lateral E' Peak V10.87cm/sMedial E' Peak V8.48cm/sE/Lateral E'8.3 E/Medial E'10.6 Tricuspid Valve TR Peak Wzrlpnhb894jn/sTR Peak Gr.14nuEpAPML90gqMu LEFT VENTRICLE The left ventricle is normal size. There is borderline concentric left ventricular hypertrophy. The left ventricular function is normal. The left ventricular ejection fraction is within the normal range. There is normal LV segmental wall motion. No left ventricle thrombus noted on this study. RIGHT VENTRICLE The right ventricle is normal size. There is normal right ventricular wall thickness. The right ventricular systolic function is normal. ATRIA The left atrium is mildly dilated. The right atrium is mildly dilated. AORTIC VALVE The aortic valve is normal in structure. No aortic regurgitation is present. There is no aortic valvular stenosis. MITRAL VALVE The mitral valve is normal in structure. There is no mitral valve stenosis. Mitral regurgitation is trace. TRICUSPID VALVE There is mild tricuspid regurgitation. There is mild to moderate pulmonary hypertension. PULMONIC VALVE There is trace pulmonic valvular regurgitation. GREAT VESSELS The aortic root is normal in size. The IVC is normal in size and collapses >50% with inspiration. PERICARDIAL EFFUSION There is no pericardial effusion. <Conclusion> There is borderline concentric left ventricular hypertrophy. The left ventricular function is normal. The left ventricular ejection fraction is within the normal range. There is normal LV segmental wall motion. There is mild tricuspid regurgitation. There is mild to moderate pulmonary hypertension.
[2018-07-20 01:04] LABS: CK-MB 2.58 ng/mL (0.0-3.38); TROPONIN I 0.013 ng/mL (0.00-0.120)
[2018-07-20 01:38] VITALS: RESP 20
[2018-07-20] MEDS: Levothyroxine 125 MCG TAB PO SCH (05:44)
[2018-07-20 07:55] LABS: BASO # 0.1 K/uL (0.0-0.2); BASO % 0.6 % (0.0-2.0); EOS # 0.2 K/uL (0.0-0.7); EOS % 2.3 % (0.0-4.0); HEMOGLOBIN 11.3 g/dL (12.0-18.0); LYMPH # 1.8 K/uL (1.0-4.3); LYMPH % 19.4 % (20.0-40.0); MEAN CELL VOLUME 92.2 fL (80.0-94.0); MEAN CORPUSCULAR HEMOGLOBIN 31.8 pg (27.0-31.0); MEAN CORPUSCULAR HGB CONC 34.5 g/dL (33.0-37.0); MEAN PLATELET VOLUME 8.8 fL (7.2-11.7); MONO # 0.8 K/uL (0.0-0.8); MONO % 8.6 % (0.0-10.0); NEUT # 6.3 K/uL (1.8-7.0); NEUT % 69.1 % (50.0-75.0); RBC 3.54 Mil/uL (4.40-5.90); RED CELL DISTRIBUTION WIDTH 14.1 % (11.5-14.5); WHITE BLOOD COUNT 9.2 K/uL (4.8-10.8)
--- NOTE | 2018-07-20 08:03 | CP.PCM.PN ---
Subjective - Date & Time of Evaluation Date of Evaluation: 07/20/18 Time of Evaluation: 09:30 - Subjective Subjective: Chart review Vitals- BP stable no unusual event noted echo done EF normal Cardiac plan for Stress test patient seen- undergoing nuclear test, asymptomatic aware of condition and plan further discussion with cardio Dr sage Objective - Vital Signs/Intake and Output Vital Signs (last 24 hours): Temp Pulse Resp BP Pulse Ox 98.5 F 76 20 127/78 95 07/19/18 23:45 07/19/18 23:45 07/19/18 23:45 07/19/18 23:45 07/19/18 23:45 Intake and Output: 07/20/18 07/20/18 06:59 18:59 Intake Total 363 Output Total 3850 400 Balance -3487 -400 - Medications Medications: Current Medications Acetaminophen (Tylenol 325mg Tab) 650 mg PO Q4 PRN PRN Reason: Pain, Mild (1-3) Last Admin: 07/18/18 22:04 Dose: 650 mg Allopurinol (Zyloprim) 100 mg PO DAILY [facility] Last Admin: 07/19/18 12:57 Dose: 100 mg Ferrous Gluconate (Fergon) 324 mg PO TID [facility] Levothyroxine Sodium (Synthroid) 125 mcg PO DAILY@0630 [facility] Last Admin: 07/20/18 05:44 Dose: 125 mcg Losartan Potassium (Cozaar) 25 mg PO DAILY [facility] Metformin HCl (Glucophage) 1,000 mg PO BIDCC [facility] Last Admin: 07/19/18 17:51 Dose: 1,000 mg Pantoprazole Sodium (Protonix Inj) 40 mg IVP DAILY [facility] Last Admin: 07/19/18 10:22 Dose: Not Given Rosuvastatin Calcium (Crestor) 5 mg PO HS [facility] Last Admin: 07/19/18 22:25 Dose: 5 mg - Labs Labs: 07/20/18 07:43 07/18/18 14:14 PT 12.2 SECONDS (9.7-12.2) 07/19/18 07:08 INR 1.1 07/19/18 07:08 APTT 29 SECONDS (21-34) 07/19/18 07:08 - Constitutional Appears: Non-toxic, No Acute Distress - Head Exam Head Exam: ATRAUMATIC, NORMOCEPHALIC - Eye Exam Eye Exam: Normal appearance - Respiratory Exam Respiratory Exam: Clear to Ausculation Bilateral - Cardiovascular Exam Cardiovascular Exam: Irregular Rhythm - GI/Abdominal Exam GI & Abdominal Exam: Soft, Normal Bowel Sounds. absent: Tenderness - Extremities Exam Extremities Exam: Full ROM, Normal Inspection. absent: Pedal Edema - Neurological Exam Neurological Exam: Alert, Awake, Normal Gait, Oriented x3 - Psychiatric Exam Psychiatric exam: Normal Affect, Normal Mood - Skin Skin Exam: Intact, Normal Color Assessment and Plan - Assessment and Plan (Free Text) Plan: Patient with multiple medical probles/risk factors NIDDM2- Hypertension Cholesterol admitted for gross hematuri- with history of prostatic ca s/p treatment years ago, cystoscopywas cancelled due to New onset Atrial Fibrillation- currently asymptomatic other than the bleeding, undergoing cardiac evaluation for further management Hypothyroidism- continue other meds GI prophylaxis no drug DVT prophyaxis due to active urological bleeding
[2018-07-20] MEDS ORDERED: Caffeine Citrated **INJ** 20 MG/ML IV ONE (08:20)
--- NOTE | 2018-07-20 17:56 | PCM.URO ---
Urology Progress Note - Objective Lab Studies: Reviewed (full note is dictated // but for thoroughness at this point pt has eaten ---so it is too risky to do surgery/cystoscopy and to wait 8 hours and do a procedure on a pt that has new onset a fib in the middle of the night is not warranted. i came yesterday morning to do the procedure and it was postponed awaiting cardiac clearance, i returned this am and now i came back at night just for the cystoscopy and we are unable to perform the procedure. the reports that the stress test people gave him the food . the nurse on the the fifth floor along with the casino cage supervisor reports that the pt reports that the was worried with the pt being npo for too long so she gave him crackers. it does not matter, what matters is that the patient has eaten and it is unsafe to provide anethesia. At 2:45 the pts called me directly on my cell. And i told her that we were planning on performing the cystoscopy this afternoon as soon as we had cardiac clearance. i have arrived back here at 5 pm to learn that the pt has eaten . the says she worked in an operating room and it is too risky to do the procedure if he ate, and yet she has provided him with crackers. At this point the urology recommendation is still for cystoscopy but after three unsuccessful attempts at an emergency level specifically with the pt eating today , we will schedule the pt for 07/24/18 - tuesday and the patient can remain here or be discharged home. An alternative is to consult another urologist . Unfortunately i am not available tomorrow before 6 pm and at this point i am not recommending a cystoscopy that late especially with the 's concerns of npo and diabetes. will follow along full note dictated) Lab Results Last 24 Hours: Laboratory Results - last 24 hr 07/20/18 07/20/18 07/20/18 00:38 06:44 07:43 WBC 9.2 RBC 3.54 L Hgb 11.3 L Hct 32.7 L MCV 92.2 MCH 31.8 H MCHC 34.5 RDW 14.1 Plt Count 166 MPV 8.8 Neut % (Auto) 69.1 Lymph % (Auto) 19.4 L [place] % (Auto) 8.6 Eos % (Auto) 2.3 Baso % (Auto) 0.6 Neut # (Auto) 6.3 Lymph # (Auto) 1.8 [place] # (Auto) 0.8 Eos # (Auto) 0.2 Baso # (Auto) 0.1 POC Glucose (mg/dL) 145 H Total Creatine Kinase 281 H CK-MB (Mass) 2.58 Troponin I 0.0130 07/20/18 11:24 WBC RBC Hgb Hct MCV MCH MCHC RDW Plt Count MPV Neut % (Auto) Lymph % (Auto) [place] % (Auto) Eos % (Auto) Baso % (Auto) Neut # (Auto) Lymph # (Auto) [place] # (Auto) Eos # (Auto) Baso # (Auto) POC Glucose (mg/dL) 216 H Total Creatine Kinase CK-MB (Mass) Troponin I Intake & Output: Intake & Output 07/19/18 07/20/18 07/20/18 18:59 06:59 18:59 Intake Total 3880 363 Output Total 5600 3850 400 Balance -7830 -6052 -400 Intake: Intake, IV Amount 400 63 Left Antecubital 400 63 Oral 480 300 Other 3000 Output: Urine 5600 3850 400 3-way Urethral 2000 3850 400 Other: # Bowel Movements 0 1 Vital Signs: Vital Signs - 24 hr 07/19/18 07/19/18 07/20/18 23:00 23:45 08:00 Temperature 98.5 F Pulse Rate 83 76 95 H Respiratory 20 Rate Blood Pressure 127/78 O2 Sat by Pulse 95 Oximetry
[2018-07-21] MEDS: Levothyroxine 125 MCG TAB PO SCH (05:37)
--- NOTE | 2018-07-21 08:00 | CP.PCM.PN ---
Subjective - Date & Time of Evaluation Date of Evaluation: 07/21/18 Time of Evaluation: 08:50 - Subjective Subjective: chart reviewvitals BP stable no other unusual event scheduled cysto yesterday not done patient decided to stay with another Urologist conflict settled Urology notes appreciated no unusual event overnight H/H stable Patient seen, no complaints catheter still with blood no pain no fever Objective - Vital Signs/Intake and Output Vital Signs (last 24 hours): Temp Pulse Resp BP Pulse Ox 97.9 F 73 20 128/83 95 07/20/18 23:30 07/20/18 23:30 07/20/18 23:30 07/20/18 23:30 07/20/18 23:30 Intake and Output: 07/21/18 07/21/18 06:59 18:59 Intake Total 120 Output Total 1450 Balance -1450 120 - Medications Medications: Current Medications Acetaminophen (Tylenol 325mg Tab) 650 mg PO Q4 PRN PRN Reason: Pain, Mild (1-3) Last Admin: 07/18/18 22:04 Dose: 650 mg Allopurinol (Zyloprim) 100 mg PO DAILY [facility] Last Admin: 07/20/18 10:19 Dose: 100 mg Ferrous Gluconate (Fergon) 324 mg PO TID [facility] Last Admin: 07/20/18 18:00 Dose: Not Given Levothyroxine Sodium (Synthroid) 125 mcg PO DAILY@0630 [facility] Last Admin: 07/21/18 05:37 Dose: 125 mcg Losartan Potassium (Cozaar) 25 mg PO DAILY [facility] Last Admin: 07/20/18 10:19 Dose: 25 mg Metformin HCl (Glucophage) 1,000 mg PO BIDCC [facility] Last Admin: 07/20/18 17:00 Dose: Not Given Pantoprazole Sodium (Protonix Inj) 40 mg IVP DAILY [facility] Last Admin: 07/20/18 10:19 Dose: 40 mg Rosuvastatin Calcium (Crestor) 5 mg PO HS [facility] Last Admin: 07/20/18 22:46 Dose: 5 mg - Labs Labs: 07/20/18 07:43 07/18/18 14:14 PT 12.2 SECONDS (9.7-12.2) 07/19/18 07:08 INR 1.1 07/19/18 07:08 APTT 29 SECONDS (21-34) 07/19/18 07:08 - Constitutional Appears: Non-toxic - Head Exam Head Exam: ATRAUMATIC, NORMOCEPHALIC - Eye Exam Eye Exam: Normal appearance - ENT Exam ENT Exam: Mucous Membranes Moist - Neck Exam Neck Exam: Full ROM. absent: Tenderness - Respiratory Exam Respiratory Exam: Clear to Ausculation Bilateral, NORMAL BREATHING PATTERN - Cardiovascular Exam Cardiovascular Exam: Irregular Rhythm - GI/Abdominal Exam GI & Abdominal Exam: Soft, Normal Bowel Sounds - Exam Exam: absent: Bladder Distension (still on catheter with reddish return but clearer mary carmen yesterday ) - Extremities Exam Extremities Exam: Full ROM. absent: Pedal Edema - Neurological Exam Neurological Exam: Alert, Awake, Normal Gait - Psychiatric Exam Psychiatric exam: Normal Affect, Normal Mood - Skin Skin Exam: Intact, Normal Color Assessment and Plan - Assessment and Plan (Free Text) Assessment: Patient with history of Prostate Ca / s/p treatment years ago , admitted for Gross Hematuria , had A Fib with normal nuclear- for Cysto in Am- tuesday NIDDM2- since patient is to be NPO_ will hold DM meds accucheck Hypertension- stable Hemoglobin - stable at 11- 12- Type and cross standby further discussion with patient GI prophylaxis
--- NOTE | 2018-07-21 20:46 | CP.PCM.PN ---
Subjective - Date & Time of Evaluation Date of Evaluation: 07/21/18 Time of Evaluation: 08:40 - Subjective Subjective: Patient with no cardiac events A Fib Review of Systems - Constitutional Constitutional: absent: Chills - EENT Eyes: absent: Blurred Vision Ears: Decreased Hearing - Cardiovascular Cardiovascular: absent: Chest Pain, Chest Pain with Activity, Dyspnea, Edema, Lightheadedness, Palpitations - Respiratory Respiratory: absent: Dyspnea - Gastrointestinal Gastrointestinal: absent: Constipation, Diarrhea, Nausea, Vomiting - Genitourinary Genitourinary: Hematuria - Neurological Neurological: absent: Headaches Physical Exam - Constitutional Appears: Well, Non-toxic, No Acute Distress - Head Exam Head Exam: ATRAUMATIC, NORMAL INSPECTION - Eye Exam Eye Exam: EOMI, Normal appearance, PERRL Pupil Exam: NORMAL ACCOMODATION - ENT Exam ENT Exam: Mucous Membranes Moist - Respiratory Exam Respiratory Exam: Clear to Auscultation Bilateral, NORMAL BREATHING PATTERN - Cardiovascular Exam Cardiovascular Exam: Irregular Rhythm - GI/Abdominal Exam GI & Abdominal Exam: Normal Bowel Sounds, Soft. absent: Tenderness - Extremities Exam Extremities exam: Positive for: normal inspection - Neurological Exam Neurological exam: Alert, Oriented x3 - Psychiatric Exam Psychiatric exam: Normal Affect - Skin Skin Exam: Normal Color Objective - Vital Signs/Intake and Output Vital Signs (last 24 hours): Temp Pulse Resp BP Pulse Ox 99.1 F 76 20 177/67 H 97 07/21/18 15:00 07/21/18 20:00 07/21/18 15:00 07/21/18 15:00 07/21/18 15:00 Intake and Output: 07/21/18 07/22/18 18:59 06:59 Intake Total 120 Balance 120 - Medications Medications: Current Medications Acetaminophen (Tylenol 325mg Tab) 650 mg PO Q4 PRN PRN Reason: Pain, Mild (1-3) Last Admin: 07/18/18 22:04 Dose: 650 mg Allopurinol (Zyloprim) 100 mg PO DAILY [facility] Last Admin: 07/21/18 10:02 Dose: Not Given Ferrous Gluconate (Fergon) 324 mg PO TID [facility] Last Admin: 07/21/18 17:48 Dose: 324 mg Levothyroxine Sodium (Synthroid) 125 mcg PO DAILY@0630 [facility] Last Admin: 07/21/18 05:37 Dose: 125 mcg Losartan Potassium (Cozaar) 25 mg PO DAILY [facility] Last Admin: 07/21/18 10:02 Dose: Not Given Metformin HCl (Glucophage) 1,000 mg PO BIDCC [facility] Last Admin: 07/21/18 17:48 Dose: 1,000 mg Pantoprazole Sodium (Protonix Inj) 40 mg IVP DAILY [facility] Last Admin: 07/21/18 10:54 Dose: 40 mg Rosuvastatin Calcium (Crestor) 5 mg PO HS [facility] Last Admin: 07/20/18 22:46 Dose: 5 mg - Labs Labs: 07/20/18 07:43 07/18/18 14:14 PT 12.2 SECONDS (9.7-12.2) 07/19/18 07:08 INR 1.1 07/19/18 07:08 APTT 29 SECONDS (21-34) 07/19/18 07:08 Assessment and Plan - Assessment and Plan (Free Text) Assessment: New Onset Atrial Fibrillation - Patient is asymptomatic - EKG: afib - Trop: Negative Normal stress test and normal EF Low risk for cardiac events for cystoscopy under general anaesthesia Unable to start anticoagulation for A Fib due to hematuria History of Diabetes Type II - Management per primary team - Metformin 1000mg bid - Losartan 25mg po daily HLD - Crestor 5mg HS Start anti coagulation for A Fib once cleared by Urology
[2018-07-22] MEDS: Levothyroxine 125 MCG TAB PO SCH (06:12)
[2018-07-22 07:54] VITALS: BP 128/76; TEMP 98.5; O2SAT 97
[2018-07-22 08:27] VITALS: PULSE 68
--- NOTE | 2018-07-22 08:47 | CP.PCM.PN ---
Subjective - Date & Time of Evaluation Date of Evaluation: 07/22/18 Time of Evaluation: 08:50 - Subjective Subjective: chart review no unusual event no bleeding off catheter- urine clear cysto cancelled patient seen out of bed, off catheter had urinated 3 times, andclear , no blood no other complaints Dr Gutierrez aware plan for home discussed Objective - Vital Signs/Intake and Output Vital Signs (last 24 hours): Temp Pulse Resp BP Pulse Ox 98.5 F 68 20 128/76 97 07/22/18 07:00 07/22/18 07:30 07/22/18 07:00 07/22/18 07:00 07/22/18 07:00 Intake and Output: 07/22/18 07/22/18 06:59 18:59 Intake Total 250 Output Total 550 Balance -300 - Medications Medications: Current Medications Acetaminophen (Tylenol 325mg Tab) 650 mg PO Q4 PRN PRN Reason: Pain, Mild (1-3) Last Admin: 07/18/18 22:04 Dose: 650 mg Allopurinol (Zyloprim) 100 mg PO DAILY [facility] Last Admin: 07/21/18 10:02 Dose: Not Given Enoxaparin Sodium (Lovenox) 30 mg SC DAILY [facility] Ferrous Gluconate (Fergon) 324 mg PO TID [facility] Last Admin: 07/21/18 17:48 Dose: 324 mg Levothyroxine Sodium (Synthroid) 125 mcg PO DAILY@0630 [facility] Last Admin: 07/22/18 06:12 Dose: 125 mcg Losartan Potassium (Cozaar) 25 mg PO DAILY [facility] Last Admin: 07/21/18 10:02 Dose: Not Given Metformin HCl (Glucophage) 1,000 mg PO BIDCC [facility] Last Admin: 07/21/18 17:48 Dose: 1,000 mg Pantoprazole Sodium (Protonix Inj) 40 mg IVP DAILY [facility] Last Admin: 07/21/18 10:54 Dose: 40 mg Rosuvastatin Calcium (Crestor) 5 mg PO HS [facility] Last Admin: 07/21/18 21:44 Dose: 5 mg - Labs Labs: 07/20/18 07:43 07/18/18 14:14 PT 12.2 SECONDS (9.7-12.2) 07/19/18 07:08 INR 1.1 07/19/18 07:08 APTT 29 SECONDS (21-34) 07/19/18 07:08 - Constitutional Appears: Non-toxic, No Acute Distress - Head Exam Head Exam: ATRAUMATIC, NORMOCEPHALIC - Eye Exam Eye Exam: Normal appearance - ENT Exam ENT Exam: Mucous Membranes Moist - Neck Exam Neck Exam: Full ROM. absent: Tenderness - Respiratory Exam Respiratory Exam: Clear to Ausculation Bilateral, NORMAL BREATHING PATTERN - Cardiovascular Exam Cardiovascular Exam: Irregular Rhythm - GI/Abdominal Exam GI & Abdominal Exam: Soft, Normal Bowel Sounds - Extremities Exam Extremities Exam: Full ROM, Normal Inspection. absent: Pedal Edema - Neurological Exam Neurological Exam: Alert, Awake, Normal Gait, Oriented x3 - Psychiatric Exam Psychiatric exam: Normal Affect, Normal Mood - Skin Skin Exam: Intact, Normal Color Assessment and Plan - Assessment and Plan (Free Text) Assessment: Patient with Multiple medical Problems admitted for Gross hematuria with new onset Atrial Fibrillation- but due to heamutri- Discussed with Dr Panda will place on aspirin for now - will have to follow up with cardio- , prefer in their area History of Prostate Ca- years ago- with recent hematuria- resolved- to monitor- prefer to go to urolgist near their place NIDDM2- monitor- medication to resume accordingly Hypertension continue meds Cholesterol- to continue statin further discussion with and son on plan very much aware of condition and plan Home today
--- NOTE | 2018-07-22 09:51 | CP.PCM.DIS ---
Provider - Provider Date of Admission: 07/18/18 16:08 Attending physician: Radha Cates MD Consults: 07/18/18 13:28 Physician Consult Stat Comment: Consulting Provider: Samuel Diego Consulting Physician: Samuel Diego Reason for Consult: Hematuria 07/19/18 08:56 Cardiology Consult Routine Comment: Consulting Provider: Fabian Panda Consulting Physician: Fabian Panda Reason for Consult: new onset of Afib 07/20/18 20:11 Physician Consult Routine Comment: Consulting Provider: Ji Gutierrez Consulting Physician: Ji Gutierrez Reason for Consult: Hematuria Time Spent in preparation of Discharge (in minutes): 30 Hospital Course - Lab Results Lab Results: Micro Results 07/18/18 15:07 Urine Random Urine Culture - Final No Growth (<1,000 CFU/ML) Most Recent Lab Values WBC 9.2 K/uL (4.8-10.8) 07/20/18 07:43 RBC 3.54 Mil/uL (4.40-5.90) L 07/20/18 07:43 Hgb 11.3 g/dL (12.0-18.0) L 07/20/18 07:43 Hct 32.7 % (35.0-51.0) L 07/20/18 07:43 MCV 92.2 fL (80.0-94.0) 07/20/18 07:43 MCH 31.8 pg (27.0-31.0) H 07/20/18 07:43 MCHC 34.5 g/dL (33.0-37.0) 07/20/18 07:43 RDW 14.1 % (11.5-14.5) 07/20/18 07:43 Plt Count 166 K/uL (130-400) 07/20/18 07:43 MPV 8.8 fL (7.2-11.7) 07/20/18 07:43 Neut % (Auto) 69.1 % (50.0-75.0) 07/20/18 07:43 Lymph % (Auto) 19.4 % (20.0-40.0) L 07/20/18 07:43 [place] % (Auto) 8.6 % (0.0-10.0) 07/20/18 07:43 Eos % (Auto) 2.3 % (0.0-4.0) 07/20/18 07:43 Baso % (Auto) 0.6 % (0.0-2.0) 07/20/18 07:43 Neut # (Auto) 6.3 K/uL (1.8-7.0) 07/20/18 07:43 Lymph # (Auto) 1.8 K/uL (1.0-4.3) 07/20/18 07:43 [place] # (Auto) 0.8 K/uL (0.0-0.8) 07/20/18 07:43 Eos # (Auto) 0.2 K/uL (0.0-0.7) 07/20/18 07:43 Baso # (Auto) 0.1 K/uL (0.0-0.2) 07/20/18 07:43 PT 12.2 SECONDS (9.7-12.2) 07/19/18 07:08 INR 1.1 07/19/18 07:08 APTT 29 SECONDS (21-34) 07/19/18 07:08 Sodium 136 mmol/L (132-148) 07/18/18 14:14 Potassium 4.7 mmol/L (3.6-5.2) 07/18/18 14:14 Chloride 100 mmol/L (98-107) 07/18/18 14:14 Carbon Dioxide 23 mmol/L (22-30) 07/18/18 14:14 Anion Gap 17 (10-20) 07/18/18 14:14 BUN 20 mg/dL (9-20) 07/18/18 14:14 Creatinine 1.3 mg/dL (0.8-1.5) 07/18/18 14:14 Est GFR ( Amer) > 60 07/18/18 14:14 Est GFR (Non-Af Amer) 53 07/18/18 14:14 POC Glucose (mg/dL) 142 mg/dL (65-110) H 07/22/18 06:44 Random Glucose 116 mg/dL (75-110) H 07/18/18 14:14 Calcium 9.5 mg/dl (8.6-10.4) 07/18/18 14:14 Total Bilirubin 0.5 mg/dL (0.2-1.3) 07/18/18 14:14 AST 27 U/L (17-59) 07/18/18 14:14 ALT 41 U/L (21-72) 07/18/18 14:14 Alkaline Phosphatase 41 U/L (38-126) 07/18/18 14:14 Total Creatine Kinase 281 U/L (55-170) H 07/20/18 00:38 CK-MB (Mass) 2.58 ng/mL (0.0-3.38) 07/20/18 00:38 Troponin I 0.0130 ng/mL (0.00-0.120) 07/20/18 00:38 Total Protein 7.0 g/dL (6.3-8.3) 07/18/18 14:14 Albumin 4.6 g/dL (3.5-5.0) 07/18/18 14:14 Globulin 2.4 gm/dL (2.2-3.9) 07/18/18 14:14 Albumin/Globulin Ratio 1.9 (1.0-2.1) 07/18/18 14:14 Urine Color Yellow (YELLOW) 07/18/18 15:07 Urine Clarity Hazy (Clear) 07/18/18 15:07 Urine pH 6.0 (5.0-8.0) 07/18/18 15:07 Ur Specific [place] 1.017 (1.003-1.030) 07/18/18 15:07 Urine Protein 3+ mg/dL (NEGATIVE) H 07/18/18 15:07 Urine Glucose (UA) Normal mg/dL (Normal) 07/18/18 15:07 Urine Ketones Negative mg/dL (NEGATIVE) 07/18/18 15:07 Urine Blood 3+ (NEGATIVE) H 07/18/18 15:07 Urine Nitrate Negative (NEGATIVE) 07/18/18 15:07 Urine Bilirubin Negative (NEGATIVE) 07/18/18 15:07 Urine Urobilinogen Normal mg/dL (0.2-1.0) 07/18/18 15:07 Ur Leukocyte Esterase Neg [place]/uL (Negative) 07/18/18 15:07 Urine RBC (Auto) 00113 /hpf (0-3) H 07/18/18 15:07 Blood Type B POSITIVE 07/18/18 18:53 Antibody Screen Negative 07/18/18 18:53 - Hospital Course Hospital Course: admitted for gross hematuria found to be in Atrial Fib- cysto cancelled, Nuclear and echo unremarkable, cannot place on anticoagulation due to active bleeding - patient monson sno complaints other than some slight pain when blood clots passes urethra- remained afebrile urine became cleared- and bleeding resolved and plan for home. Patient decided to have foloow up with cardio and urology near their place - Date & Time of H&P Date of H&P: 07/22/18 Time of H&P: 09:51 Discharge Exam - Head Exam Head Exam: ATRAUMATIC, NORMOCEPHALIC - Eye Exam Eye Exam: Normal appearance - ENT Exam ENT Exam: Mucous Membranes Moist - Neck Exam Neck exam: Full Rom - Respiratory Exam Respiratory Exam: Clear to PA & Lateral, NORMAL BREATHING PATTERN - Cardiovascular Exam Cardiovascular Exam: Irregular Rhythm - GI/Abdominal Exam GI & Abdominal Exam: Normal Bowel Sounds - Extremities Exam Extremities exam: normal inspection - Neurological Exam Neurological exam: Alert, Normal Gait, Oriented x3 - Psychiatric Exam Psychiatric exam: Normal Affect, Normal Mood - Skin Skin Exam: Intact, Normal Color Discharge Plan - Follow Up Plan Condition: STABLE Disposition: HOME/ ROUTINE
[2018-07-22] MEDS ORDERED: Enoxaparin 30 mg Syringe SC SCH (10:00)
[2018-07-22] MEDS ORDERED: Pneumococcal 23-Valent Vaccine IM ONE (10:15)
--- NOTE | 2018-07-24 08:33 | PN ---
DATE: 07/20/2018 SUBJECTIVE: See the previous dictated consult note and H and P. The patient is a very pleasant 78-year-old gentleman, who presented with gross hematuria and clot urinary retention. Of note, we came to see the patient. The patient is originally Dr. Segovia's patient. Spoke to Dr. Segovia a few times about the patient including now to chart this note also. Also spoke to Dr. Loan bradford. The patient had presented with gross hematuria, clot urinary retention. Since his initial presentation actually, he stabilized off. His hematocrit for the last two days was 32%, initially was 37%, but he is no longer bleeding. The Cotto catheter is in place, but there is still some blood-tinged urine. Today, I had seen the patient earlier about 6 p.m. and now while putting this note into the chart, I saw the patient on the floor at about 12 noon. I explained to the patient and his that we are awaiting cardiac clearance and I apologized to them being n.p.o. for so long, especially at the age of 78 years ago, but he is n.p.o. for two reasons. He is n.p.o. in preparation for his cardiac testing. He is also n.p.o. for the OR. The anticipated time to find out about whether the patient will be ultimately going to OR [facility] will be about 3 p.m. I spoke to the patient in person. I came to the fifth floor. I spoke to the patient and directly and then about 02:45 p.m., the called me to ask me if we are still planning to do the procedure and I explained that we are still trying to do. We are just waiting for medical/cardiology clearance. In the interim, now he has come back to the hospital, so after being here at 12 o' clock and speaking with the patient directly, not just by phone but directly and then the called me on my cell phone at 02:25 p.m, I now come back to the hospital in preparation, we have obtained cardiac clearance and we walked to the patient now to the operating room, only to learn that he in fact ate. Further questioning is that he was given crackers by the cardiac staff after completing a stress test. Due to uncertainty (I am not sure where the lack of certainty was) since I came to see the patient at 12 o' clock and then I spoke to the at 02:45 p.m. that apparently they had some lack certainty whether or not we were doing the procedure today, so he decided to eat. Without any sarcasm, I do not see that he was forced at. I think it was a mistake on the nursing or ancillary care to offer him food, but still as of 12 o' clock when I spoke to the patient directly, not though any communication, other than me directly to the patient, the plan was to go to the operating room as soon as we get cardiac clearance. Anyway, I spoke with the patient and his at this point. As you said, it was a miscommunication and nobody should have given him a cracker. When I spoke to the nurse on the floor, the nurse on the floor explained to me that his gave him the cracker. It does not make a difference who gave it to him. It was clear that we were doing the procedure today. See the plan listed as below. In the interim, past medical and surgical history has no other changes. REVIEW OF SYSTEMS: As above, otherwise noncontributory. PHYSICAL EXAMINATION: Remains essentially unchanged, except that the Cotto catheter is still in place and it is draining little bit clearer than before. His vital signs are all within normal limits. His Cotto catheter is in place, draining slight blood tinged, but much better. The abdomen did not seen grossly distended. LABORATORY DATA: Hematocrit is 32% and stable. It specifically dropped on his initial presentation, but it has been stable for the last day or two. DIAGNOSES: Gross hematuria, clot urinary retention, prostate cancer, status post radiation. ASSESSMENT AND PLAN: In summary, a very pleasant 78-year-old gentleman who for some reason we are having difficulty with his schedule. Since a while talking to the patient and his , I am apologetic that they ate and I am sure that they are disappointed that they are not going to have the procedure. That they ate and even when the said to me that she used to work in an operating room and she know that it is too risky to do any procedure up to 8 hours after having eaten. So, I explained of course we would not even consider it and then at this point to do it 8 hours after eating would be doing it 10 and 11 o' clock at night and the patient with new onset atrial fibrillation that we just got Cardiology clearance, we are certainly not going to do it in the middle of the night. I explained to them that we might schedule tomorrow and it is no longer an absolute emergency. There was an emergency when he came in with fresh gross hematuria. At this point, he has stabilized off. I still strongly recommend in this setting with prostate cancer radiation to the prostate etc. and gross hematuria and clot retention that he does need a cystoscopy, but it is no longer an emergency, so I explained to them that we can do it on Tuesday. But, at this point, they would like it to be done tomorrow and I spoke to Dr. Cates if she could perhaps find another urologist that would be available, but my schedule is such that the earliest I could do it tomorrow is 6 p.m. I have cases starting at 06:30 in the morning, case is scheduled all day and the earliest I could be available is 6 p.m. and again with the patient's n.p.o. status and they were disappointed with the n.p.o., I am not planning to do this. I can make arrangements to Tuesday (even Tuesday morning at 10:30). After discussing the real options with the patient and discussed my disappointment on their behalf that I am sorry that they have been here now since Tuesday and it is now night and they still have not had that procedure and that is very disappointing I am sure for them. It is equally disappointing to me that I have come here a couple of times. Specifically yesterday, I understand because there was a new onset AFib, which we could not control medically, but from a eating standpoint, we could control. After explaining all this, the plan will be to obtain a second opinion and then further plans will follow and perhaps, there will be another urologist that will be able to perform a cystoscope tomorrow. If not, I am still available to help them and do the cystoscope on Tuesday. It all depends on the patient and his course. I discussed all this with Dr. Cates. I also discussed it directly with the patient and I wished them good luck. Further plans to follow with them. Catalino Diego MD [facility] # [id number]
--- NOTE | 2018-07-24 08:45 | CON ---
DATE: 07/19/2018 UROLOGY CONSULT REASON FOR CONSULTATION: 1. Gross hematuria. 2. Clot urinary retention. HISTORY OF PRESENT ILLNESS: Mr. Sandeep Hernandez is a very pleasant gentleman who presents actually to Dr. Segovia's office, he is another urologist. The patient has prostate cancer, presented today with gross hematuria actually, and then initially, the plan was to go back to their home which is somewhat about 45 minutes away. But, then the patient had a low blood pressure, was brought to the emergency room emergently, and and Dr. Segovia asked me to take care of the patient. Over the course of the nighttime, it is now currently 115 when we did in the morning at about 8 a.m. Over the course of several times, we have been monitoring his Cotto. We have been changing his Cotto, but he is now here in the operating room in clot urinary retention. See the plan as listed below. With the plan to do an emergency cysto and evacuation of clots. The see below list is going to be canceled. See below. PAST MEDICAL AND SURGICAL HISTORY: The patient of Dr. Radha Cates and otherwise nothing remarkable from Urology standpoint. REVIEW OF SYSTEMS: As listed above. In terms of the prostate cancer, we treated with radiation. He was voiding recently well until yesterday where he was in the office, and he was noted to have gross hematuria. MEDICATIONS: See the chart. ALLERGIES: SEE THE CHART. PHYSICAL EXAMINATION: GENERAL: A well-nourished male in no apparent distress. VITAL SIGNS: Within normal limits. ABDOMEN: Not overly grossly distended. It is somewhat distended. It is difficult to evaluate secondary to body habitus. There was a Cotto in place. It actually looks a little better than what I was expecting. That there is still gross hematuria present. LABORATORY DATA: Labs are noted on the chart. His initial hematocrit was about 37% to about 33% now. . Labs, see the chart for the rest of the labs. BUN and creatinine noted. White count noted. Everything noted. Potassium, calcium etc are all noted. CT scan also noted. The diagnosis is gross hematuria. Clot urinary retention and a prostate cancer. We at this point discussed various options. The plan is for an emergency cystoscopy, evacuation of clot, possible biopsy, and fulguration. In fact, I want to mention that I have come to the hospital today just for this patient, to do the procedure I have made all my arrangements to round this. Today, I have been seeing a dirty date in the OR. We have scheduled ourselves. We brought the patient to the operating room, but upon presentation in the operating room, the anesthesiologist did an EKG and we note the presence of new onset AFib. So, the plan will be a little bit different at this point. 1. We are going to continue to monitor the patient closely. We are going to leave a Cotto catheter in place. 2. We are going to plan to get an EKG and a cardiology consult. Dr. Panda had already been consulted, and Dr. Panda will follow the patient. He has recommended the CAT scan to be done, and then once this is done, if the patient is stable, bring him into the operating room. The urology plan for now is: 1. Resume diet. 2. Cardiac workup for the new onset AFib. 3. Cystoscopy and evacuation of clots to follow. as well. I explained all this to the patient and his that are here, and then, further plans, we will follow. Thank you for the urology consult, and we will notify Dr. Cates and also Dr. Segovia. We will follow up plan. Catalino Diego MD
--- NOTE | 2018-07-24 17:24 | CARD ---
APPROVED REPORT Date of service: 07/20/2018 Protocol: LEXISCAN Test Type: LEXISCAN STRESS Test Indications: PRE OP Medications: LIST Target HR: 141 bpm Resting ECG: AFIB Resting Heart Rate: 87 bpm Resting Blood Pressure: 120/80mmHg submaximum (85%): 120 bpm TEST SUMMARY PREINFSNHYPERV.05:[id number]/80.1. INFUSIONDOSE 100:300.00.01.088/.0. FVTTSTPCP65:[id number]/80.1. PROCEDURE Pharmacologic stress testing was performed using 0.4mg per 5ml of regadenoson given intravenously over 7-10 seconds. POST EXERCISE Reason for Termination: Protocol Completed Target HR: No Max HR: 88 bpm 83% of Maximum Predicted HR: 141 bpm Exercise duration: 00:30 min:sec, 0 Stage Exercise capacity: 1.0METs Max Blood Pressure: 120/80mmHg Blood Pressure response to exercise: normal resting BP - appropriate response Heart Rate response to exercise: appropriate Chest Pain: No, none Angina index: 0 Arrhythmia: Yes, OCC VPB'S ST Change: No, none FROM BASELINE Deviation: 0 mm INTERPRETATION Stress EKG Conclusion: NEGATIVE LEXISCAN STRESS TEST NORMAL BP RESPONSE TO LEXISCAN NUCLEAR STUDIES TO BE READ SEPARATELY EXAM: Myocardial Perfusion STRESS/REST Imaging Protocol The imaging protocol used to acquire images was Stress Tc-99m/rest Tc-99m 1 day Stress Spect myocardial perfusion imaging was performed in supine position 45 minutes following the injection of 13.1 mCi of Tc-99 Myoview. Gated Rest Spect was performed 42 minutes after intravenous 30.5 mCi Tc-99 Myoview injection. The images were gated to evaluate regional wall motion and calculate ventricular ejection fraction.Images were reconstructed using backfilter projection method in short horizontal and verticle long axis. Spect slices were generated. RESTING DATA EDV63.52zaWL2.00L/min ESV15.00mlMyocardial Expe313.00g Av. Heart Rate83.00bpm EF76.00% STRESS DATA EDV59.06ehDU8.90L/min ESV8.00mlMyocardial Vxkk450.00g EF86.00% Regional WT score at stress:0.00 Regional WM score at stress:0.00 Summed WT score at stress:0.00 Av. Heart Rate97.00bpmSummed WM score at stress:0.00 LV Perf. Quant 17 Seg. SSS0.00 17 Seg. SRS0.00 17 Seg. SDS0.00 Stress Defect Extent (% LAD)0.00Rest Defect Extent (% LAD)0.00Rev. Defect Extent (% LAD)0.00 Stress Defect Extent (% LCX)15.00Rest Defect Extent (% LCX)7.50Rev. Defect Extent (% LCX)1.30 Stress Defect Extent (% RCA)0.00Rest Defect Extent (% RCA)0.00Rev. Defect Extent (% RCA)0.00 Stress Defect Extent (% ALEXY)2.60Rest Defect Extent (% ALEXY)1.30Rev. Defect Extent (% ALEXY)0.20 IMPRESSION Normal Myocardial Perfusion exercise stress study Left Ventricle LV Function:Left ventricle systolic function is normal. The Ejection Fraction is >70%. Regional Wall Motion:There is normal left ventricular wall motion. Metabolism/Perfusion Defects: There is no scan evidence of reversible ischemia noted. There are no perfusion/metabolism defects. Conclusion 1. There is no scan evidence of reversible ischemia noted. 2. Left ventricle systolic function is normal. 3. The Ejection Fraction is >70%.
== END 2018-07-22 10:28 | disposition home or self-care (01) ==
LOC: C.ER 12:03 → C.9E 16:08 → C.3T 18:59 → C.5S 07-19 15:17
PROVIDERS: ADMIT Internal Medicine; ATTEND Internal Medicine
DX: R31.9 Hematuria, unspecified (principal); I48.91 Unspecified atrial fibrillation; E11.9 Type 2 diabetes mellitus without complications; C61 Malignant neoplasm of prostate; E03.9 Hypothyroidism, unspecified; H91.90 Unspecified hearing loss, unspecified ear; E78.00 Pure hypercholesterolemia, unspecified
CPT/HCPCS: 36415; 80053; 81001; 82948; 84484; 85025; 85027; 85610; 85730; 86850; 86900; 87086; 90732; 93306; 97116; 97162; 99285; C9113; G0009; G0378; G8978; G8979; J1644; J2785; J7030; J7042